=== PATIENT | male | born 1995 | race Caucasian/White ===

== ENCOUNTER 2016-03-10 15:05 | Emergency (ER) | payer OTHER ==
[~2016-03-10] VITALS: Ht 172.7 cm; Wt 68.0 kg
[~2016-03-10 15:05] MED LIST: AUGMENTIN 875 M1 TAB PO; MOTRIN800 MG PO
[2016-03-10 15:18] VITALS: BP 133/84
[2016-03-10] MEDS ORDERED: CYCLOBENZAPRINE5 M2 PO (15:45)
[2016-03-10] MEDS ORDERED: IBUPROFEN600 M1 PO (15:45)
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
== END 2016-03-10 16:00 ==
LOC: ERH 15:05
DX: S39.012A Strain of muscle, fascia and tendon of lower back, initial encounter (principal); V49.40XA Driver injured in collision with unspecified motor vehicles in traffic accident, initial encounter

== ENCOUNTER 2016-09-27 17:45 | Emergency (ER) | payer OTHER ==
[~2016-09-27] VITALS: Ht 172.7 cm; Wt 68.0 kg
[~2016-09-27 17:45] MED LIST changes: +CYCLOBENZAPRINE5 M2 PO; +IBUPROFEN600 M1 PO
--- NOTE | 2016-09-27 18:05 | ED NECK/BACK PAIN COMPLAINT ---
History of Present Illness General Chief Complaint: Low Back Pain/Injury Stated Complaint: LOWER BACK PAIN Source: patient Exam Limitations: no limitations Vital Signs & Intake/Output Vital Signs & Intake/Output Vital Signs Date Time Temp Pulse Resp B/P B/P Pulse O2 O2 Flow FiO2 Mean Ox Delivery Rate 09/27 2002 98.3 93 16 126/74 96 Room Air 09/27 1832 Room Air 09/27 1749 97.4 97 18 116/71 99 Room Air Allergies Coded Allergies: NO KNOWN ALLERGIES (06/29/12) Reconcile Medications Diazepam (Valium) 5 MG TABLET 1 TAB PO TID SPASMS Ibuprofen 800 MG TABLET 1 TAB PO TID PAIN Methylprednisolone. (Medrol) 4 MG TAB.DS.PK 1 DP PO AD BACK PAIN 6 on day 1 then reduce by one tablet daily until gone Oxycodone HCl/Acetaminophen (Percocet 5-325 MG Tablet) 5 MG-325 MG TABLET 1-2 TAB PO Q6P PRN PAIN Triage Note: PT TO ED FOR LOW BACK PAIN S/P WRESTLING WITH FRIENDS. PT C/O SUDDEN LOW BACK PAIN AFTER LIFTING HIS FRIEND UP, NO LOSS OF B/B, DENIES NUMBNESS OR TINGLING. Triage Nurses Notes Reviewed? yes Onset: Abrupt Duration: minute(s):, hour(s):, constant Timing: single episode today Quality/Severity: moderate, severe Location: lumbar spine Radiation: upper legs, lower legs HPI: 21-year-old male comes into emergency room for further evaluation of low back pain. Patient was wrestling with his friend any felt a crack in his low back. Sharp pain since then. Barely able to move. Pain radiates down both his legs. Some associated tingling in his feet. Difficulty walking. Denies any other system symptoms. Pain is sharp. Continuous. Worse with any type of movement. (AGUSTÍN MORALES) Past History Travel History Traveled to [place] past 21 day No Medical History Any Pertinent Medical History? see below for history Neurological: NONE EENT: NONE Cardiovascular: NONE Respiratory: NONE Gastrointestinal: NONE Hepatic: NONE Renal: NONE Musculoskeletal: NONE Psychiatric: NONE Endocrine: NONE Blood Disorders: NONE Cancer(s): NONE Tetanus Vaccine: 02/14/16 Surgical History Surgical History: NONE Psychosocial History What is your primary language Singaporean Tobacco Use: Current Daily Use Daily Tobacco Use Amount/Type: => 5 Cigarettes daily ETOH Use: occasional use Illicit Drug Use: marijuana Family History Hx Contributory? No (AGUSTÍN MORALES) Review of Systems Review of Systems Constitutional: Reports: no symptoms. Eyes: Reports: no symptoms. Ears, Nose, Throat, Mouth: Reports: no symptoms. Respiratory: Reports: no symptoms. Cardiovascular: Reports: no symptoms. Gastrointestinal/Abdominal: Reports: no symptoms. Musculoskeletal: Reports: see HPI. Skin: Reports: no symptoms. Neurological/Psychological: Reports: no symptoms. All Other Systems: Reviewed and Negative (AGUSTÍN MORALES) Physical Exam Physical Exam General Appearance: well developed/nourished, moderate distress Head: atraumatic Eyes: Bilateral: normal appearance. Ears, Nose, Throat, Mouth: hearing grossly normal, moist mucous membrane Neck: normal inspection Respiratory: no respiratory distress Back: normal inspection, paraspinal muscle tenderness Extremities: normal range of motion Straight Leg Raising: Right: Pain at ____ degrees (10). Left: Pain at ____ degrees (10). Neurologic/Psych: awake, alert, oriented x 3, normal mood/affect Skin: intact, normal color, warm/dry (AGUSTÍN MORALES) Progress Differential Diagnosis: AAA, aortic dissection, C spine injury, carotid dissection, cauda equina syn, herniated disc, myofascial strain, pyelo/UTI, sciatica, spinal cord inj, thoracic outlet syn, T/L spine injury, ureterolithiasis Plan of Care: Orders Procedure Date/time Status XRY-LUMBOSACRAL SPINE 4 VIEWS 09/27 1801 Active Current Medications Sig/Yoselin Start time Last Medication Dose Stop Time Status Admin Diazepam 5 MG ONCE ONE 09/27 1814 UNVr 09/27 (Valium) 09/27 Ketorolac 60 MG ONCE ONE 09/27 1814 UNVr 09/27 Tromethamine 09/27 (Toradol) Oxycodone/ 1 TAB ONCE ONE 09/27 1814 UNVr 09/27 Acetaminophen 09/27 (Percocet) Diagnostic Imaging: Viewed by Me: Radiology Read. Discussed w/RAD: Radiology Read. Comments: PATIENT: COLLIN ESTRADA PRESENT AGE: 21 PATIENT ACCOUNT NO: [id number] : [birth year] LOCATION: [facility] ORDERING PHYSICIAN: AGUSTÍN DAVISON SERVICE DATE: 09/27/16 EXAM TYPE: RAD - XRY-LUMBOSACRAL SPINE 4 VIEWS EXAMINATION: XR LUMBOSACRAL SPINE CLINICAL INFORMATION: Low back pain. Wrestling with friends. COMPARISON: Scoliosis series 12/14/2012. TECHNIQUE: AP and lateral views of the lumbosacral spine were obtained on 4 images. FINDINGS: The vertebral bodies and posterior elements are normal. The disc spaces are preserved and the vertebral alignment is normal. The paraspinal soft tissues are normal. Sacroiliac joints are unremarkable. IMPRESSION: Unremarkable examination. DICTATED BY: JASE HAQUE MD DATE/TIME DICTATED:09/27/161833 CHANGE BOOTH ATTENDANT:HUSEYIN DATE/TIME TRANSCRIBED:09/27/161833 CONFIDENTIAL, DO NOT COPY WITHOUT APPROPRIATE AUTHORIZATION. <Electronically signed in Other Vendor System> SIGNED BY: JASE HAQUE MD [id number] (MARY DAVISON,AGUSTÍN) Departure Departure Disposition: HOME OR SELF CARE Condition: Stable Clinical Impression Primary Impression: Strain of muscle, fascia and tendon of lower back, initial encounter Referrals: SUSU ARAUJO,WINNIE Vanegas (PCP/Family) Additional Instructions: Take Percocet, Valium, Medrol Dosepak, and ibuprofen as prescribed. Follow-up with your primary care doctor. Return if any concerns worsening symptoms. Please go over all results of today's visit with your primary care doctor. Contact your primary care doctor to let them know you were here in the emergency room. There may be nonspecific findings which may not be related to your visit today here in the emergency room but may require further evaluation and chronic monitoring by your primary care doctor. If you had a laceration today the chance of foreign body always remains. You should follow-up with your primary care doctor for recheck in 3-5 days for a wound check. If you had an x-ray done there is a chance that a fracture could have been missed on initial read and you should follow-up with your primary care doctor for repeat x-rays if symptoms persist. If your blood pressure was elevated here in the emergency room please have rechecked by her primary care doctor within the next 48 hours by your primary care doctor. If you were prescribed a narcotic here in the emergency room or any type of controlled substances you're not allowed to drive while taking this medication or operate any type of heavy machinery. Narcotics can make you feel lightheaded dizziness nausea and can cause constipation. You may need to belt picker a stool softener. Thank you for choosing [facility] emergency room. Please return to the emergency room immediately if you have any other concerns worsening of symptoms. Departure Forms: Customer Survey General Discharge Information Prescriptions: Current Visit Scripts Ibuprofen 1 TAB PO TID #30 TAB Diazepam (Valium) 1 TAB PO TID #15 TAB Oxycodone HCl/Acetaminophen (Percocet 5-325 MG Tablet) 1-2 TAB PO Q6P PRN PAIN #15 TAB Methylprednisolone. (Medrol) 1 DP PO AD #1 DP 6 on day 1 then reduce by one tablet daily until gone Comments 09/27/2016 8:14:40 PM Patient's pain is all reproducible and lower back. Pain is worse with range of motion. No evidence of radiculopathy on exam. No urinary bowel dysfunction. No genital numbness. No weakness in the lower extremity. Normal dorsiflexion of great toe. Gross sensation intact. No saddle paresthesia. Considered things like cauda equina have a do not feel that patient's symptoms at this point in time are consistent with this diagnosis. Patient reevaluated multiple times. Patient has no other symptoms that could be attributing to back pain. No abdominal pain, shortness of breath, chest pain. Patient is to follow-up with primary care doctor for recheck. If symptoms persist patient should be considered for an MRI of the lower back. Patient is to return immediately if any nausea vomiting, fever, weakness in the legs, urinary bowel dysfunction, abdominal pain, chest pain, shortness of breath. No weight loss. No night sweats. Pain is consistent with musculoskeletal pain due to the patient's symptoms mentioned above. Patient's pain significantly improved. Patient discharged with close follow-up. (AGUSTÍN MORALES) PA/INSULATION MECHANIC Co-Sign Statement Statement: ED Attending supervision documentation- [] I saw and evaluated the patient. I have also reviewed all the pertinent lab results and diagnostic results. I agree with the findings and the plan of care as documented in the PA's/INSULATION MECHANIC's documentation. [X] I have reviewed the ED Record and agree with the PA's/INSULATION MECHANIC's documentation. [] Additions or exceptions (if any) to the PAs/INSULATION MECHANIC's note and plan are summarized below: [] (JOEL MITCHELL DO)
--- NOTE | 2016-09-27 18:39 | RADIOLOGY REPORT ---
EXAMINATION: XR LUMBOSACRAL SPINE CLINICAL INFORMATION: Low back pain. Wrestling with friends. COMPARISON: Scoliosis series 12/14/2012. TECHNIQUE: AP and lateral views of the lumbosacral spine were obtained on 4 images. FINDINGS: The vertebral bodies and posterior elements are normal. The disc spaces are preserved and the vertebral alignment is normal. The paraspinal soft tissues are normal. Sacroiliac joints are unremarkable. IMPRESSION: Unremarkable examination.
[2016-09-27] MEDS ORDERED: MEDROL4 M2 PO (19:52)
[2016-09-27] MEDS ORDERED: VALIUM5 M2 PO (19:52)
[2016-09-27] MEDS ORDERED: IBUPROFEN800 M1 PO (19:52)
[2016-09-27] MEDS ORDERED: PERCOCET 5-3251 EACH PO (19:52)
[2016-09-27 20:03] VITALS: BP 126/74
== END 2016-09-27 20:05 ==
LOC: ERH 17:45
DX: S39.012A Strain of muscle, fascia and tendon of lower back, initial encounter (principal); X58.XXXA Exposure to other specified factors, initial encounter; Y93.83 Activity, rough housing and horseplay; Y92.9 Unspecified place or not applicable
CPT/HCPCS: 72110; 96372; J1885; J3360